=== PATIENT | female | born 1945 | race Caucasian/White ===

== ENCOUNTER 2018-12-06 16:42 | Observation (INO) | payer MEDICARE, MEDICAID ==
[2018-12-06 16:42] VITALS: BMI 30.2
--- NOTE | 2018-12-06 17:46 | ED PDOC ---
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 Patie nt states episodes have been intermittent and she has also had minimal shortness of breath. Denies nausea, cough, fever. Cctv Technician: Romie Past Medical History Reviewed: Historical Data, Nursing Documentation, Vital Signs Vital Signs: Last Vital Signs Temp 97.5 F L 12/06/18 16:54 Pulse 68 12/06/18 17:29 Resp 20 12/06/18 16:54 BP 172/99 H 12/06/18 16:54 Pulse Ox 100 12/06/18 16:54 - Medical History PMH: HTN, Hyperthyroidism Denies: Chronic Kidney Disease Other PMH: x2 ND; neurofibromatosis - Surgical History Surgical History: Cholecystectomy Denies: Pacemaker Other surgeries: Right Mastectomy - Family History Family History: States: Unknown Family Hx - Social History Current smoker - smoking cessation education provided: No - Home Medications Home Medications: Ambulatory Orders Medication Instructions Recorded Clopidogrel [Plavix] 1 tab PO DAILY 07/15/14 Gabapentin 300 mg PO BID 09/20/14 Hydrochlorothiazide/Valsarta 1 tab PO DAILY 09/20/14 [Diovan Hct 12.5 mg-160 mg] Metoprolol Tartrate 25 mg PO TID 09/20/14 - Allergies Allergies/Adverse Reactions: Allergies Allergy/AdvReac Type Severity Reaction Status Date / Time No Known Allergies Allergy Verified 07/15/14 08:19 Review of Systems ROS Statement: Except As Marked, All Systems Reviewed And Found Negative Constitutional: Negative for: Fever Cardiovascular: Positive for: Chest Pain (pressure) Respiratory: Positive for: Shortness of Breath (minimal). Negative for: Cough Musculoskeletal: Positive for: Arm Pain (left) Physical Exam - Reviewed Nursing Documentation Reviewed: Yes Vital Signs Reviewed: Yes - Physical Exam Appears: Positive for: Well, Non-toxic, No Acute Distress Head Exam: Positive for: ATRAUMATIC, NORMAL INSPECTION, NORMOCEPHALIC Skin: Positive for: Normal Color, Warm, DRY Eye Exam: Positive for: EOMI, Normal appearance, PERRL ENT: Positive for: Normal ENT Inspection Neck: Positive for: Normal, Painless ROM Cardiovascular/Chest: Positive for: Regular Rate, Rhythm. Negative for: Murmur Respiratory: Positive for: Normal Breath Sounds. Negative for: Respiratory Distress Gastrointestinal/Abdominal: Positive for: Normal Exam, Soft. Negative for: Tenderness Back: Positive for: Normal Inspection Extremity: Positive for: Normal ROM. Negative for: Pedal Edema, Deformity Neurologic/Psych: Positive for: Alert, Oriented. Negative for: Motor/Sensory Deficits - Laboratory Results Result Diagrams: 12/06/18 18:30 12/06/18 18:30 - ECG Interpretation Of ECG: NSR @ 68, TWI I and aVL (no old to compare). O2 Sat by Pulse Oximetry: 100 (RA) Pulse Ox Interpretation: Normal Medical Decision Making Medical Decision Making: Time: 17:21 Initial Impression: Chest pressure Initial Plan: EKG CMP TSH Troponin ED Urine CBC w/ diff PTT Prothrombin time CXR UA Accession No. : [id number] Patient Name / ID : TERESSA [id number] / [id number] Exam Date : 12/06/2018 17:38:26 ( Approved ) Study Comment : Sex / Age : F / 73Y Creator : Wong Porter MD Dictator : Wong Porter MD Shank Faker : Security Incident Response Specialist : Wong Porter MD Approver2 : Report Date : 12/06/2018 17:57:16 My Comment : Date of service: 12/06/2018 HISTORY: CP COMPARISON: No prior. FINDINGS: LUNGS: No active pulmonary disease. PLEURA: No significant pleural effusion identified, no pneumothorax apparent. CARDIOVASCULAR: Minor aortic atherosclerotic calcification present. Heart is enlarged with left ventricular configuration. . OSSEOUS STRUCTURES: No significant abnormalities. VISUALIZED UPPER ABDOMEN: Normal. OTHER FINDINGS: None. IMPRESSION: No acute infiltrates. Scribe Attestation: Documented by Rito Perez acting as a scribe for Kari Velasquez MD. Provider Scribe Attestation: All medical record entries made by the Scribe were at my direction and personally dictated by me. I have reviewed the chart and agree that the record accurately reflects my personal performance of the history, physical exam, medical decision making, and the department course for this patient. I have also personally directed, reviewed, and agree with the discharge instructions and disposition. Disposition - Clinical Impression Clinical Impression: Chest pain - Disposition Disposition Time: 20:28 Condition: STABLE - Pt Status Changed To: Hospital Disposition Of: Observation - POA Present On Arrival: None
--- NOTE | 2018-12-06 18:01 | RAD ---
Date of service: 12/06/2018 HISTORY: CP COMPARISON: No prior. FINDINGS: LUNGS: No active pulmonary disease. PLEURA: No significant pleural effusion identified, no pneumothorax apparent. CARDIOVASCULAR: Minor aortic atherosclerotic calcification present. Heart is enlarged with left ventricular configuration. . OSSEOUS STRUCTURES: No significant abnormalities. VISUALIZED UPPER ABDOMEN: Normal. OTHER FINDINGS: None. IMPRESSION: No acute infiltrates.
[2018-12-06 19:08] LABS: BASO # 0.1 K/uL (0.0-0.2); BASO % 0.8 % (0.0-2.0); EOS # 0.1 K/uL (0.0-0.7); EOS % 0.6 % (0.0-4.0); HEMOGLOBIN 15.1 g/dL (12.0-16.0); LYMPH # 1.7 K/uL (1.0-4.3); LYMPH % 20.1 % (20.0-40.0); MEAN CELL VOLUME 89.5 fl (81.0-99.0); MEAN CORPUSCULAR HEMOGLOBIN 29.7 pg (27.0-31.0); MEAN CORPUSCULAR HGB CONC 33.2 g/dL (33.0-37.0); MEAN PLATELET VOLUME 10.6 fl (7.2-11.7); MONO # 0.5 K/uL (0.0-0.8); MONO % 6.1 % (0.0-10.0); NEUT % 72.4 % (50.0-75.0); RBC 5.08 Mil/uL (3.80-5.20); RED CELL DISTRIBUTION WIDTH 14.5 % (11.5-14.5); WHITE BLOOD COUNT 8.3 K/uL (4.8-10.8)
[2018-12-06 19:17] LABS: SQUAMOUS EPITHIAL 2 /hpf (0-5); URINE BILIRUBIN NEGATIVE (NEGATIVE); URINE BLOOD NEGATIVE (NEGATIVE); URINE CLARITY CLEAR (Clear); URINE COLOR STRAW (YELLOW); URINE GLUCOSE (UA) NEG (NEGATIVE); URINE LEUKOCYTE ESTERASE NEG Leu/uL (Negative); URINE PROTEIN NEGATIVE (NEGATIVE); URINE UROBILINOGEN 0.2-1.0 mg/dL (0.2-1.0)
[2018-12-06 19:19] LABS: INR 1.1
[2018-12-06 19:26] LABS: ALB/GLOB RATIO 1.4 (1.0-2.1); ALBUMIN 4.2 g/dL (3.5-5.0); ALT/SGPT 23 U/L (9-52); AST/SGOT 16 U/L (14-36); BLOOD UREA NITROGEN 13 mg/dl (7-17); CALCIUM 9.2 mg/dL (8.4-10.2); GFR NON-AFRICAN AMERICAN > 60
--- NOTE | 2018-12-06 21:20 | CP.PCM.HP ---
<Lisbeth Chacon - Last Filed: 12/06/18 22:31> History of Present Illness - History of Present Illness History of Present Illness: This is 73 y/o F with PMH of HTN, CAD, NH x2 s/p stent, neurofibromatosis, and abnormal thyroid admitted to [facility] for eval and treatment of 1 day history of sub-sternal chest pain. Patient reports pain started this morning around 11 am, non-radiating pain, 7/10 severity, comes and goes, dull/pressure like in nature, deep breathing and walking makes pain better. Chest pain is associated with dizziness, blurred vision and tingling around mouth. Denies any SOB, headache, SOB, abdominal pain, urinary symptoms or weakness. Block Tester: Dr. Grubbs PMH: HTN, CAD, NH x2 s/p stent and abnormal thyroid PSH: , Cholecystectomy, R mastectomy s/p breast Ca. Allg: NKDA Meds: As per recs FH: + neurofibromatosis, + DM and NH SH: Denies alcohol, smoking and drug use ROS: As per HPI Present on Admission - Present on Admission Any Indicators Present on Admission: No Review of Systems - Constitutional Constitutional: As Per HPI. absent: Chills, Fever - EENT Eyes: Blurred Vision Ears: absent: Decreased Hearing, Ear Discharge Nose/Mouth/Throat: absent: Epistaxis, Nasal Congestion, Nasal Discharge, Sinus Pressure, Dry Mouth, Hoarsness - Cardiovascular Cardiovascular: Chest Pain. absent: Dyspnea on Exertion - Respiratory Respiratory: absent: Cough, Dyspnea, Hemoptysis, Dyspnea on Exertion - Gastrointestinal Gastrointestinal: absent: Abdominal Pain, Change in Bowel Habits - Genitourinary Genitourinary: absent: Change in Urinary Stream - Musculoskeletal Musculoskeletal: absent: Abnormal Gait - Hematologic/Lymphatic Hematologic: absent: Easy Bleeding Past Patient History - Past Medical History & Family History Past Medical History?: Yes - Past Social History Smoking Status: Never Smoked - CARDIAC Hx Hypertension: Yes Hx Pacemaker: No - PULMONARY Hx Respiratory Disorders: No - NEUROLOGICAL Hx Paralysis: No - HEENT Hx HEENT Problems: No - RENAL Hx Chronic Kidney Disease: No - ENDOCRINE/METABOLIC Hx Hyperthyroidism: Yes - HEMATOLOGICAL/ONCOLOGICAL Hx Blood Transfusions: No Hx Blood Transfusion Reaction: No - INTEGUMENTARY Hx Dermatological Problems: Yes Other/Comment: NEUROFIBROMATOSIS - MUSCULOSKELETAL/RHEUMATOLOGICAL Hx Musculoskeletal Disorders: Yes - GASTROINTESTINAL Hx Gastrointestinal Disorders: No - GENITOURINARY/GYNECOLOGICAL Hx Genitourinary Disorders: No - PSYCHIATRIC Hx Emotional Abuse: No Hx Physical Abuse: No Hx Substance Use: No - SURGICAL HISTORY Hx Cholecystectomy: Yes - ANESTHESIA Hx Anesthesia Reactions: No Hx Malignant Hyperthermia: No Meds Allergies/Adverse Reactions: Allergies Allergy/AdvReac Type Severity Reaction Status Date / Time No Known Allergies Allergy Verified 07/15/14 08:19 Physical Exam - Constitutional Appears: No Acute Distress - Head Exam Head Exam: NORMAL INSPECTION - Eye Exam Eye Exam: EOMI, Normal appearance, PERRL Pupil Exam: NORMAL ACCOMODATION - ENT Exam ENT Exam: Mucous Membranes Moist - Neck Exam Neck exam: Positive for: Normal Inspection - Respiratory Exam Respiratory Exam: Chest Wall Tenderness, Clear to Auscultation Bilateral, NORMAL BREATHING PATTERN. absent: Accessory Muscle Use, Decreased Breath Sounds, Rhonchi, Wheezes, Respiratory Distress - Cardiovascular Exam Cardiovascular Exam: REGULAR RHYTHM, +S1, +S2 - GI/Abdominal Exam GI & Abdominal Exam: Normal Bowel Sounds, Soft. absent: Distended, Tenderness - Extremities Exam Extremities exam: Positive for: normal capillary refill, normal inspection. Negative for: calf tenderness, joint swelling, pedal edema, tenderness - Back Exam Back exam: NORMAL INSPECTION. absent: CVA tenderness (L), CVA tenderness (R) - Neurological Exam Neurological exam: Alert, CN II-XII Intact, Normal Gait, Oriented x3 - Psychiatric Exam Psychiatric exam: Normal Affect - Skin Skin Exam: Normal Color (diffuse neurofibromatosis), Warm Results - Vital Signs Recent Vital Signs: Last Vital Signs Temp 97.5 F L 12/06/18 16:54 Pulse 70 12/06/18 19:45 Resp 18 12/06/18 19:45 BP 146/89 12/06/18 19:45 Pulse Ox 100 12/06/18 20:28 - Labs Result Diagrams: 12/06/18 18:30 12/06/18 18:30 Labs: Laboratory Results - last 24 hr 12/06/18 12/06/18 12/06/18 18:20 18:30 18:30 WBC 8.3 RBC 5.08 Hgb 15.1 Hct 45.5 MCV 89.5 MCH 29.7 MCHC 33.2 RDW 14.5 Plt Count 199 MPV 10.6 Neut % (Auto) 72.4 Lymph % (Auto) 20.1 [place] % (Auto) 6.1 Eos % (Auto) 0.6 Baso % (Auto) 0.8 Neut # (Auto) 6.0 Lymph # (Auto) 1.7 [place] # (Auto) 0.5 Eos # (Auto) 0.1 Baso # (Auto) 0.1 PT INR APTT Sodium 137 Potassium 3.6 Chloride 100 Carbon Dioxide 27 Anion Gap 14 BUN 13 Creatinine 0.7 Est GFR ( Amer) > 60 Est GFR (Non-Af Amer) > 60 Random Glucose 96 Calcium 9.2 Total Bilirubin 0.6 AST 16 ALT 23 Alkaline Phosphatase 93 Troponin I < 0.0120 Total Protein 7.2 Albumin 4.2 Globulin 3.0 Albumin/Globulin Ratio 1.4 TSH 3rd Generation 0.78 Urine Color Straw Urine Clarity Clear Urine pH 7.0 Ur Specific [place] 1.008 Urine Protein Negative Urine Glucose (UA) Neg Urine Ketones Trace Urine Blood Negative Urine Nitrate Negative Urine Bilirubin Negative Urine Urobilinogen 0.2-1.0 Ur Leukocyte Esterase Neg Urine Microscopic WBC 1 Ur Squamous Epith Cells 2 12/06/18 18:30 WBC RBC Hgb Hct MCV MCH MCHC RDW Plt Count MPV Neut % (Auto) Lymph % (Auto) [place] % (Auto) Eos % (Auto) Baso % (Auto) Neut # (Auto) Lymph # (Auto) [place] # (Auto) Eos # (Auto) Baso # (Auto) PT 12.0 INR 1.1 APTT 37.0 Sodium Potassium Chloride Carbon Dioxide Anion Gap BUN Creatinine Est GFR ( Amer) Est GFR (Non-Af Amer) Random Glucose Calcium Total Bilirubin AST ALT Alkaline Phosphatase Troponin I Total Protein Albumin Globulin Albumin/Globulin Ratio TSH 3rd Generation Urine Color Urine Clarity Urine pH Ur Specific [place] Urine Protein Urine Glucose (UA) Urine Ketones Urine Blood Urine Nitrate Urine Bilirubin Urine Urobilinogen Ur Leukocyte Esterase Urine Microscopic WBC Ur Squamous Epith Cells Assessment & Plan - Assessment and Plan (Free Text) Assessment: A/P: 73 y/o F with PMH of HTN, CAD, NH x2 s/p stent, neurofibromatosis, and abnormal thyroid admitted to [facility] for eval and treatment of 1 day history of sub-sternal chest pain. Acute Chest Pain, R/o ACS - S/p Aspirin in ER - Trop x1 negative - CBC and CMP WNL - EKG: NSR @ 68, TWI I and aVL (no old to compare) - Consult Cardio, f/u recommendations - Follow up Trop x2 Q6H - NitroG SL PRN - F/u morning EKG - Echo in Morning Hypertension - Controlled - C/w Diovan 12.5-160mg CAD - C/w Ranexa 500mg BID - C/w Lipitor, will confirm medication with pharmacy in morning Neurofibromatosis - Controlled - C/w Gabapentin 300mg BID Hyperthyroidism - Controlled - C/w home medication, will confirm medication with pharmacy in morning DVT PPX - SCD for now <Alessio Dmaian - Last Filed: 12/06/18 23:15> Results - Vital Signs Recent Vital Signs: Last Vital Signs Temp 97.4 F L 12/06/18 22:26 Pulse 56 L 12/06/18 22:26 Resp 20 12/06/18 22:26 BP 154/79 H 12/06/18 22:26 Pulse Ox 98 12/06/18 22:26 - Labs Result Diagrams: 12/06/18 18:30 12/06/18 18:30 Labs: Laboratory Results - last 24 hr 12/06/18 12/06/18 12/06/18 18:20 18:30 18:30 WBC 8.3 RBC 5.08 Hgb 15.1 Hct 45.5 MCV 89.5 MCH 29.7 MCHC 33.2 RDW 14.5 Plt Count 199 MPV 10.6 Neut % (Auto) 72.4 Lymph % (Auto) 20.1 [place] % (Auto) 6.1 Eos % (Auto) 0.6 Baso % (Auto) 0.8 Neut # (Auto) 6.0 Lymph # (Auto) 1.7 [place] # (Auto) 0.5 Eos # (Auto) 0.1 Baso # (Auto) 0.1 PT INR APTT Sodium 137 Potassium 3.6 Chloride 100 Carbon Dioxide 27 Anion Gap 14 BUN 13 Creatinine 0.7 Est GFR ( Amer) > 60 Est GFR (Non-Af Amer) > 60 Random Glucose 96 Calcium 9.2 Total Bilirubin 0.6 AST 16 ALT 23 Alkaline Phosphatase 93 Troponin I < 0.0120 Total Protein 7.2 Albumin 4.2 Globulin 3.0 Albumin/Globulin Ratio 1.4 TSH 3rd Generation 0.78 Urine Color Straw Urine Clarity Clear Urine pH 7.0 Ur Specific [place] 1.008 Urine Protein Negative Urine Glucose (UA) Neg Urine Ketones Trace Urine Blood Negative Urine Nitrate Negative Urine Bilirubin Negative Urine Urobilinogen 0.2-1.0 Ur Leukocyte Esterase Neg Urine Microscopic WBC 1 Ur Squamous Epith Cells 2 12/06/18 18:30 WBC RBC Hgb Hct MCV MCH MCHC RDW Plt Count MPV Neut % (Auto) Lymph % (Auto) [place] % (Auto) Eos % (Auto) Baso % (Auto) Neut # (Auto) Lymph # (Auto) [place] # (Auto) Eos # (Auto) Baso # (Auto) PT 12.0 INR 1.1 APTT 37.0 Sodium Potassium Chloride Carbon Dioxide Anion Gap BUN Creatinine Est GFR ( Amer) Est GFR (Non-Af Amer) Random Glucose Calcium Total Bilirubin AST ALT Alkaline Phosphatase Troponin I Total Protein Albumin Globulin Albumin/Globulin Ratio TSH 3rd Generation Urine Color Urine Clarity Urine pH Ur Specific [place] Urine Protein Urine Glucose (UA) Urine Ketones Urine Blood Urine Nitrate Urine Bilirubin Urine Urobilinogen Ur Leukocyte Esterase Urine Microscopic WBC Ur Squamous Epith Cells Attending/Attestation - Attestation I have personally seen and examined this patient.: Yes I have fully participated in the care of the patient.: Yes I have reviewed all pertinent clinical information: Yes Notes (Text): 12/06/18 22:59 I saw, examined and discussed this patient with Dr Chacon. I agree with the assessment and plan outlined. This is a 73 years old female with hx of HTN, CAD on Plavix , comes with one episode of left chest pain radiating to the left arm, with negative Troponin and EKG showing T inversion at the lateral leads. The patient will have serial Troponin, EKG, ECHO for wall motion, Lipid panel Treat with Nitroglycerine if necessary and consult Cardiology. Continue Home medication Alessio Damian MD
[2018-12-07 01:53] LABS: HDL CHOLESTEROL 47 MG/DL (30-70)
[2018-12-07 02:04] LABS: LDL CHOLESTEROL 115 mg/dL (0-129)
[2018-12-07 08:52] VITALS: RESP 20
[2018-12-07] MEDS ORDERED: Ranolazine 500 mg Extended Release Tablets PO SCH (09:00)
[2018-12-07] MEDS ORDERED: [UNRECOGNIZED DRUG - OTHER] PO SCH (09:00)
[2018-12-07] MEDS ORDERED: HYDROCHLOROTHIAZIDE PO SCH (09:00)
--- NOTE | 2018-12-07 10:10 | CARD ---
APPROVED REPORT Date of service: 12/06/2018 EKG Measurement Heart [id number] <Conclusion> Normal sinus rhythm Low voltage QRS T wave abnormality, consider lateral ischemia Abnormal ECG
--- NOTE | 2018-12-07 11:35 | CP.PCM.DIS ---
<Caroline Lynch - Last Filed: 12/07/18 13:13> Provider - Provider Date of Admission: 12/06/18 20:18 Attending physician: Alessio Damian Primary care physician: PMD: Dr. Bustamante Consults: 12/06/18 20:19 Cardiology Consult Stat Comment: Consulting Provider: Td Grubbs Consulting Physician: Td Grubbs Reason for Consult: Chest pain Time Spent in preparation of Discharge (in minutes): 30 Hospital Course - Lab Results Lab Results: Most Recent Lab Values WBC 8.3 K/uL (4.8-10.8) 12/06/18 18:30 RBC 5.08 Mil/uL (3.80-5.20) 12/06/18 18:30 Hgb 15.1 g/dL (12.0-16.0) 12/06/18 18:30 Hct 45.5 % (34.0-47.0) 12/06/18 18:30 MCV 89.5 fl (81.0-99.0) 12/06/18 18:30 MCH 29.7 pg (27.0-31.0) 12/06/18 18:30 MCHC 33.2 g/dL (33.0-37.0) 12/06/18 18:30 RDW 14.5 % (11.5-14.5) 12/06/18 18:30 Plt Count 199 K/uL (130-400) 12/06/18 18:30 MPV 10.6 fl (7.2-11.7) 12/06/18 18:30 Neut % (Auto) 72.4 % (50.0-75.0) 12/06/18 18:30 Lymph % (Auto) 20.1 % (20.0-40.0) 12/06/18 18:30 [place] % (Auto) 6.1 % (0.0-10.0) 12/06/18 18:30 Eos % (Auto) 0.6 % (0.0-4.0) 12/06/18 18:30 Baso % (Auto) 0.8 % (0.0-2.0) 12/06/18 18:30 Neut # (Auto) 6.0 K/uL (1.8-7.0) 12/06/18 18:30 Lymph # (Auto) 1.7 K/uL (1.0-4.3) 12/06/18 18:30 [place] # (Auto) 0.5 K/uL (0.0-0.8) 12/06/18 18:30 Eos # (Auto) 0.1 K/uL (0.0-0.7) 12/06/18 18:30 Baso # (Auto) 0.1 K/uL (0.0-0.2) 12/06/18 18:30 PT 12.0 Seconds (9.8-13.1) 12/06/18 18:30 INR 1.1 12/06/18 18:30 APTT 37.0 Seconds (25.6-37.1) 12/06/18 18:30 Sodium 137 mmol/l (132-148) 12/06/18 18:30 Potassium 3.6 MMOL/L (3.6-5.0) 12/06/18 18:30 Chloride 100 mmol/L (98-107) 12/06/18 18:30 Carbon Dioxide 27 mmol/L (22-30) 12/06/18 18:30 Anion Gap 14 (10-20) 12/06/18 18:30 BUN 13 mg/dl (7-17) 12/06/18 18:30 Creatinine 0.7 mg/dl (0.7-1.2) 12/06/18 18:30 Est GFR ( Amer) > 60 12/06/18 18:30 Est GFR (Non-Af Amer) > 60 12/06/18 18:30 Random Glucose 96 mg/dL (65-105) 12/06/18 18:30 Calcium 9.2 mg/dL (8.4-10.2) 12/06/18 18:30 Total Bilirubin 0.6 mg/dl (0.2-1.3) 12/06/18 18:30 AST 16 U/L (14-36) 12/06/18 18:30 ALT 23 U/L (9-52) 12/06/18 18:30 Alkaline Phosphatase 93 U/L (38-126) 12/06/18 18:30 Troponin I < 0.0120 ng/mL (0.00-0.120) 12/07/18 10:18 Total Protein 7.2 G/DL (6.3-8.2) 12/06/18 18:30 Albumin 4.2 g/dL (3.5-5.0) 12/06/18 18:30 Globulin 3.0 gm/dL (2.2-3.9) 12/06/18 18:30 Albumin/Globulin Ratio 1.4 (1.0-2.1) 12/06/18 18:30 Triglycerides 119 mg/DL (0-149) 12/07/18 01:43 Cholesterol 185 mg/dL (0-199) 12/07/18 01:43 LDL Cholesterol Direct 115 mg/dL (0-129) 12/07/18 01:43 HDL Cholesterol 47 MG/DL (30-70) 12/07/18 01:43 TSH 3rd Generation 0.78 mIU/ML (0.46-4.68) 12/06/18 18:30 Urine Color Straw (YELLOW) 12/06/18 18:20 Urine Clarity Clear (Clear) 12/06/18 18:20 Urine pH 7.0 (5.0-8.0) 12/06/18 18:20 Ur Specific [place] 1.008 (1.003-1.030) 12/06/18 18:20 Urine Protein Negative mg/dL (NEGATIVE) 12/06/18 18:20 Urine Glucose (UA) Neg mg/dL (NEGATIVE) 12/06/18 18:20 Urine Ketones Trace mg/dL (NEGATIVE) 12/06/18 18:20 Urine Blood Negative (NEGATIVE) 12/06/18 18:20 Urine Nitrate Negative (NEGATIVE) 12/06/18 18:20 Urine Bilirubin Negative (NEGATIVE) 12/06/18 18:20 Urine Urobilinogen 0.2-1.0 mg/dL (0.2-1.0) 12/06/18 18:20 Ur Leukocyte Esterase Neg [place]/uL (Negative) 12/06/18 18:20 Urine Microscopic WBC 1 /hpf (0-5) 12/06/18 18:20 Ur Squamous Epith Cells 2 /hpf (0-5) 12/06/18 18:20 - Hospital Course Hospital Course: This is 73 y/o F with PMH of HTN, CAD, MA x2 s/p stent, neurofibromatosis, and abnormal thyroid admitted to [facility] for eval and treatment of 1 day history of sub-sternal chest pain. Patient reported her pain started yesterday, and has since improved. Patient denies any chest pain at this time and but complains of minimal chest tightness. Patient denies associated dizziness, blurred vision, SOB, headache, abdominal pain, urinary symptoms or weakness. Patient troponin X 3 negative, CXR showed no acute infiltrates, EKG sinus varun otherwise normal, and ECHO pending. Patient advised to follow up with Dr. Grubbs upon discharge Acute Chest Pain, R/o ACS - Trop x 3 negative - CBC and CMP WNL - EKG: NSR @ 68, TWI I and aVL (no old to compare) - Patient to follow up with Dr. Grubbs upon discharge for further workup - ECHO 12/07/18- EF 55-60%, mild mitral valve regurgitation, no tricuspid valve regurgitation Hypertension - Controlled - C/w Diovan 12.5-160mg CAD - C/w home meds Neurofibromatosis - Controlled - C/w Gabapentin 300mg BID Hyperthyroidism - Controlled - C/w home medication - Date & Time of H&P Date of H&P: 12/07/18 Time of H&P: 11:30 Discharge Exam - Head Exam Head Exam: NORMAL INSPECTION - Eye Exam Eye Exam: Normal appearance, PERRL - ENT Exam ENT Exam: Mucous Membranes Moist - Neck Exam Neck exam: Full Rom - Respiratory Exam Respiratory Exam: Clear to PA & Lateral, NORMAL BREATHING PATTERN, UNREMARKABLE. absent: Rales, Rhonchi, Wheezes - Cardiovascular Exam Cardiovascular Exam: REGULAR RHYTHM, +S1, +S2 - GI/Abdominal Exam GI & Abdominal Exam: Normal Bowel Sounds, Soft. absent: Firm - Rectal Exam Rectal Exam: Deferred - Extremities Exam Extremities exam: full ROM, normal capillary refill - Neurological Exam Neurological exam: Alert, Oriented x3 - Psychiatric Exam Psychiatric exam: Normal Affect, Normal Mood - Skin Skin Exam: Normal Color Discharge Plan - Follow Up Plan Condition: STABLE Disposition: HOME/ ROUTINE Patient education suggested?: Yes Instructions: Chest Pain (DC) Additional Instructions: shorty angely con el Doctor Romie en 1 semana. Referrals: Obey Bustamante MD [Family Provider] - Td Grubbs MD [Staff Provider] - <Destinee Spencer - Last Filed: 12/07/18 15:47> Provider - Provider Date of Admission: 12/06/18 20:18 Attending physician: Alessio Damian Consults: 12/06/18 20:19 Cardiology Consult Stat Comment: Consulting Provider: Td Grubbs Consulting Physician: Td Grubbs Reason for Consult: Chest pain Hospital Course - Lab Results Lab Results: Most Recent Lab Values WBC 8.3 K/uL (4.8-10.8) 12/06/18 18:30 RBC 5.08 Mil/uL (3.80-5.20) 12/06/18 18:30 Hgb 15.1 g/dL (12.0-16.0) 12/06/18 18:30 Hct 45.5 % (34.0-47.0) 12/06/18 18:30 MCV 89.5 fl (81.0-99.0) 12/06/18 18:30 MCH 29.7 pg (27.0-31.0) 12/06/18 18:30 MCHC 33.2 g/dL (33.0-37.0) 12/06/18 18:30 RDW 14.5 % (11.5-14.5) 12/06/18 18:30 Plt Count 199 K/uL (130-400) 12/06/18 18:30 MPV 10.6 fl (7.2-11.7) 12/06/18 18:30 Neut % (Auto) 72.4 % (50.0-75.0) 12/06/18 18:30 Lymph % (Auto) 20.1 % (20.0-40.0) 12/06/18 18:30 [place] % (Auto) 6.1 % (0.0-10.0) 12/06/18 18:30 Eos % (Auto) 0.6 % (0.0-4.0) 12/06/18 18:30 Baso % (Auto) 0.8 % (0.0-2.0) 12/06/18 18:30 Neut # (Auto) 6.0 K/uL (1.8-7.0) 12/06/18 18:30 Lymph # (Auto) 1.7 K/uL (1.0-4.3) 12/06/18 18:30 [place] # (Auto) 0.5 K/uL (0.0-0.8) 12/06/18 18:30 Eos # (Auto) 0.1 K/uL (0.0-0.7) 12/06/18 18:30 Baso # (Auto) 0.1 K/uL (0.0-0.2) 12/06/18 18:30 PT 12.0 Seconds (9.8-13.1) 12/06/18 18:30 INR 1.1 12/06/18 18:30 APTT 37.0 Seconds (25.6-37.1) 12/06/18 18:30 Sodium 137 mmol/l (132-148) 12/06/18 18:30 Potassium 3.6 MMOL/L (3.6-5.0) 12/06/18 18:30 Chloride 100 mmol/L (98-107) 12/06/18 18:30 Carbon Dioxide 27 mmol/L (22-30) 12/06/18 18:30 Anion Gap 14 (10-20) 12/06/18 18:30 BUN 13 mg/dl (7-17) 12/06/18 18:30 Creatinine 0.7 mg/dl (0.7-1.2) 12/06/18 18:30 Est GFR ( Amer) > 60 12/06/18 18:30 Est GFR (Non-Af Amer) > 60 12/06/18 18:30 Random Glucose 96 mg/dL (65-105) 12/06/18 18:30 Calcium 9.2 mg/dL (8.4-10.2) 12/06/18 18:30 Total Bilirubin 0.6 mg/dl (0.2-1.3) 12/06/18 18:30 AST 16 U/L (14-36) 12/06/18 18:30 ALT 23 U/L (9-52) 12/06/18 18:30 Alkaline Phosphatase 93 U/L (38-126) 12/06/18 18:30 Troponin I < 0.0120 ng/mL (0.00-0.120) 12/07/18 10:18 Total Protein 7.2 G/DL (6.3-8.2) 12/06/18 18:30 Albumin 4.2 g/dL (3.5-5.0) 12/06/18 18:30 Globulin 3.0 gm/dL (2.2-3.9) 12/06/18 18:30 Albumin/Globulin Ratio 1.4 (1.0-2.1) 12/06/18 18:30 Triglycerides 119 mg/DL (0-149) 12/07/18 01:43 Cholesterol 185 mg/dL (0-199) 12/07/18 01:43 LDL Cholesterol Direct 115 mg/dL (0-129) 12/07/18 01:43 HDL Cholesterol 47 MG/DL (30-70) 12/07/18 01:43 TSH 3rd Generation 0.78 mIU/ML (0.46-4.68) 12/06/18 18:30 Urine Color Straw (YELLOW) 12/06/18 18:20 Urine Clarity Clear (Clear) 12/06/18 18:20 Urine pH 7.0 (5.0-8.0) 12/06/18 18:20 Ur Specific [place] 1.008 (1.003-1.030) 12/06/18 18:20 Urine Protein Negative mg/dL (NEGATIVE) 12/06/18 18:20 Urine Glucose (UA) Neg mg/dL (NEGATIVE) 12/06/18 18:20 Urine Ketones Trace mg/dL (NEGATIVE) 12/06/18 18:20 Urine Blood Negative (NEGATIVE) 12/06/18 18:20 Urine Nitrate Negative (NEGATIVE) 12/06/18 18:20 Urine Bilirubin Negative (NEGATIVE) 12/06/18 18:20 Urine Urobilinogen 0.2-1.0 mg/dL (0.2-1.0) 12/06/18 18:20 Ur Leukocyte Esterase Neg [place]/uL (Negative) 12/06/18 18:20 Urine Microscopic WBC 1 /hpf (0-5) 12/06/18 18:20 Ur Squamous Epith Cells 2 /hpf (0-5) 12/06/18 18:20 Attending/Attestation - Attestation I have personally seen and examined this patient.: Yes I have fully participated in the care of the patient.: Yes I have reviewed all pertinent clinical information, including history, physical exam and plan: Yes Notes (Text): Chest Pain , ACS ruled out, further work up needed to determine etiology - Chest Pain resolved - pt will ff up with her [facility] this Friday - Dr Grubbs as outpatient for further cardiac work up - Troponin x 3 negative - ECHO : normal wall motion, EFF 55-60%
--- NOTE | 2018-12-07 12:34 | CARD ---
APPROVED REPORT Date of service: 12/07/2018 EKG Measurement Heart [id number] [id number] <Conclusion> Sinus bradycardia Otherwise normal ECG
--- NOTE | 2018-12-07 12:49 | CARD ---
APPROVED REPORT Date of service: 12/07/2018 EXAM: Two-dimensional and M-mode echocardiogram with Doppler and color Doppler. Other Information Quality : GoodRhythm : NSR INDICATION Chest Pain Surgery/Intervention Status/Post Intervention: Stent 2D DIMENSIONS IVSd1.21 (0.7-1.1cm)LVDd4.83 (3.9-5.9cm) LVOT Diameter1.75 (1.8-2.4cm)PWd1.10 (0.7-1.1cm) IVSs1.35 (0.8-1.2cm)LVDs3.80 (2.5-4.0cm) FS (%) 21.3 %PWs1.22 (0.8-1.2cm) M-Mode DIMENSIONS Left Atrium (MM)4.21 (2.5-4.0cm)IVSd1.18 (0.7-1.1cm) Aortic Root3.03 (2.2-3.7cm)LVDd5.74 (4.0-5.6cm) Aortic Cusp Exc.1.88 (1.5-2.0cm)PWd1.15 (0.7-1.1cm) IVSs1.65 cmFS (%) 23 % LVDs4.44 (2.0-3.8cm)PWs1.53 cm Aortic Valve AoV Peak Dxeozwvp775.1cm/sAoV VTI23.6cmAO Peak GR.4mmHg LVOT Peak Xwzbzcbf056.6cm/sLVOT VTI19.81cmAO Mean GR.3mmHg SUJATHA (VMAX)1.06mu5BZC (VTI)1.22cm2 Mitral Valve MV E Wgpcnxnq86.6cm/sMV DECEL [id number] A Lvmskplw58.5cm/s MV SAA44bhT/A ratio1.1MVA (PHT)3.66cm2 TDI Lateral E' Peak V10.02cm/sMedial E' Peak V4.56cm/sE/Lateral E'5.9 E/Medial E'13.1 LEFT VENTRICLE The left ventricle is normal size. There is normal left ventricular wall thickness. The left ventricular systolic function is normal. The estimated ejection fraction is 55-60% No regional wall motion abnormalities noted.. Transmitral Doppler flow pattern is Grade I-abnormal relaxation pattern. No left ventricle thrombus noted on this study. There is no ventricular septal defect visualized. There is no left ventricular aneurysm. There is no mass noted in the left ventricle. RIGHT VENTRICLE The right ventricle is normal size. There is normal right ventricular wall thickness. The right ventricular systolic function is normal. ATRIA The left atrium is mildly dilated. The right atrium size is normal. The interatrial septum is intact with no evidence for an atrial septal defect. AORTIC VALVE The aortic valve is normal in structure. No aortic regurgitation is present. There is no aortic valvular stenosis. There is no aortic valvular vegetation. MITRAL VALVE The mitral valve is normal in structure. There is no evidence of mitral valve prolapse. There is no mitral valve stenosis. There is mild mitral valve regurgitation noted. TRICUSPID VALVE The tricuspid valve is normal in structure. There is no tricuspid valve regurgitation noted. There is no tricuspid valve prolapse or vegetation. There is no tricuspid valve stenosis. PULMONIC VALVE The pulmonary valve is normal in structure. There is no pulmonic valvular regurgitation. There is no pulmonic valvular stenosis. GREAT VESSELS The aortic root is normal in size. The ascending aorta is normal in size. The pulmonary artery is normal. The IVC is normal in size and collapses >50% with inspiration. PERICARDIAL EFFUSION There is no pericardial effusion. There is no pleural effusion. <Conclusion> The estimated ejection fraction is 55-60% Transmitral Doppler flow pattern is Grade I-abnormal relaxation pattern. The left atrium is mildly dilated. There is mild mitral valve regurgitation noted. There is no tricuspid valve regurgitation noted.
[2018-12-07 13:20] VITALS: BP 133/84; PULSE 60; TEMP 97.9; O2SAT 100
== END 2018-12-07 14:56 | disposition home or self-care (01) ==
LOC: H.ER 16:42 → H.ERHOLD 20:18 → H.TEL 22:08
PROVIDERS: ADMIT Internal Medicine; ATTEND Internal Medicine
DX: R07.89 Other chest pain (principal); I25.10 Atherosclerotic heart disease of native coronary artery without angina pectoris; I25.2 Old myocardial infarction; Z79.899 Other long term (current) drug therapy; Z85.3 Personal history of malignant neoplasm of breast; Z90.11 Acquired absence of right breast and nipple; Z90.49 Acquired absence of other specified parts of digestive tract; E05.90 Thyrotoxicosis, unspecified without thyrotoxic crisis or storm; E11.9 Type 2 diabetes mellitus without complications; I10 Essential (primary) hypertension
CPT/HCPCS: 36415; 71045; 80053; 80061; 81003; 84443; 84484; 85025; 85610; 85730; 93005; 93306; 99285; G0378